=== PATIENT | female | born 1945 | race Caucasian/White ===

== ENCOUNTER → 2016-09-09 | Outpatient (CLI) | payer OTHER, BC ==
--- NOTE | 2016-09-10 20:37 | DI ---
CT CHEST SCAN WITHOUT IV CONTRAST, 09/09/2016 12:52 PM : Clinical History: Pulmonary nodule in the right lower lobe. Followup study. Previous Exam: 05/06/2016. Scans are performed from the base of the neck to the lower lung bases without IV contrast. Sagittal a nd coronal images using non MIPS and MIPS technique are generated. The base of the neck and thoracic inlet are normal. There are no abnormal axillary, supraclavicular, mediastinal, or hilar nodes. The heart is normal. Minimal calcifications are present at the origins o f the right coronary artery in the left circumflex artery. No acute infiltrate or effusion is present . The previously identified noncalcified 5 x 5 x 9 mm nodule in the right lower lobe laterally is unc hanged. Multiple small punctate calcifications are present in the right lower lobe indicating these a re small granulomas. There are 2 additional noncalcified nodules in these are present in the left low er lobe. There is one located posteriorly and this measures 3 x 3 x 6 mm. There is a larger nodule lo cated in the superior segment of the left lower lobe and this measures 5 x 5 x 6 mm. These were prese nt in retrospect and they also have not changed. Both adrenal glands and the visualized portions of t he liver, spleen, and pancreas are normal. READIN. Stable appearance of the noncalcified nodule in the right lower lobe laterally this measures 5 x 5 x 9 mm. 2. In retrospect, there are 2 additional noncalcified nodules in the left lower lobe that were not i dentified on the earlier study but have not changed. The larger lesion is in the superior segment and measures 5 x 5 x 6 mm, and the smaller lesion is located posteriorly and measures 3 x 3 x 6 mm. 3. Small punctate calcifications are present in the right lower lobe indicating these are benign gra nulomas. 4. A followup noncontrast CT scan is recommended in 6 months from this study.
== END ==
LOC: CT 12:46
PROVIDERS: ATTEND Nurse Practitioner Family
DX: R91.1 Solitary pulmonary nodule (principal)
CPT/HCPCS: 71250

== ENCOUNTER → 2016-09-12 | Outpatient (CLI) | payer OTHER, BC | LOC: MMPC 09:00 | PROVIDERS: ATTEND Nurse Practitioner Family | DX: Z79.01 Long term (current) use of anticoagulants (principal); Z51.81 Encounter for therapeutic drug level monitoring; Z86.718 Personal history of other venous thrombosis and embolism | CPT/HCPCS: 85610 ==

== ENCOUNTER → 2016-10-14 | Outpatient (CLI) | payer OTHER, BC | LOC: MMPC 09:00 | PROVIDERS: ATTEND Nurse Practitioner Family | DX: Z79.01 Long term (current) use of anticoagulants (principal); Z51.81 Encounter for therapeutic drug level monitoring; Z86.718 Personal history of other venous thrombosis and embolism | CPT/HCPCS: 85610 ==

== ENCOUNTER → 2016-11-01 | Outpatient (CLI) | payer OTHER, BC ==
[2016-11-01 14:30] LABS: BLOOD UREA NITROGEN 13 mg/dL (7-22); BUN/CREATININE RATIO 14.44 (6-20); CALCIUM 8.7 mg/dL (8.7-10.7); CHLORIDE 96 meq/L (98-112); CREATININE 0.9 mg/dL (0.50-1.20); EST GLOMERULAR FILTRATION > 60 (>60 ml/min/1.73m(2)); GLUCOSE 87 mg/dL (78-110); POTASSIUM 3.9 meq/L (3.8-5.2); SODIUM 132 meq/L (135-145)
== END ==
LOC: LAB 13:49
PROVIDERS: ATTEND Nurse Practitioner Family
DX: I10 Essential (primary) hypertension (principal)
CPT/HCPCS: 36415; 80048

== ENCOUNTER → 2016-11-11 | Outpatient (CLI) | payer OTHER, BC | LOC: MMPC 09:00 | PROVIDERS: ATTEND Nurse Practitioner Family | DX: Z79.01 Long term (current) use of anticoagulants (principal); Z51.81 Encounter for therapeutic drug level monitoring; Z86.718 Personal history of other venous thrombosis and embolism | CPT/HCPCS: 85610 ==

== ENCOUNTER → 2016-11-14 | Outpatient (CLI) | payer OTHER, BC | LOC: MMPC 09:00 | PROVIDERS: ATTEND Nurse Practitioner Family | DX: I10 Essential (primary) hypertension (principal); F32.0 Major depressive disorder, single episode, mild; E03.9 Hypothyroidism, unspecified; E55.9 Vitamin D deficiency, unspecified; M81.0 Age-related osteoporosis without current pathological fracture; I82.91 Chronic embolism and thrombosis of unspecified vein; M47.16 Other spondylosis with myelopathy, lumbar region; M54.17 Radiculopathy, lumbosacral region | CPT/HCPCS: 99214; G0463 ==

== ENCOUNTER → 2016-11-21 | Outpatient (CLI) | payer OTHER, BC ==
--- NOTE | 2016-11-21 10:24 | DI ---
MRI LUMBAR SPINE W/O CN,11/21/2016 8:50 AM: Clinical History: Lumbar back pain with radiculopathy affecting the left lower extremity. Previous Exam: None at this facility. Findings: Multiplanar MR images are obtained through the lumbar spine without contrast. Bony alignment is anatomic. No fractures are seen. Marrow signal is preserved. There is grade 1 anter olisthesis of L4 on L5. There is significant facet arthropathy with synovial cysts at the L4/5 and the L5/S1 level. Paravertebral soft tissues are otherwise unremarkable. Intra-abdominal structures are also unremarkab le. Signal characteristics within the surrounding musculature is unremarkable. The distal spinal cord is normal with a normal conus at the L1 level. The intra-abdominal structures and kidneys are unremarkable. Individual intervertebral disc spaces: L1/2: There is a broad-based disc bulge with some facet and ligamentum flavum hypertrophy contributin g to mild bilateral neural foraminal narrowing. L2/3: There is disc desiccation and a broad-based disc bulge with some facet and ligamentum flavum hy pertrophy contributing to mild to moderate right and mild left neural foraminal narrowing. L3/4: There is disc desiccation, annular fissuring and a 3 mm broad-based disc bulge combining with s ome facet and ligamentum flavum hypertrophy to cause moderate to severe bilateral lateral recess sten osis. L4/5: There is disc desiccation, a broad-based disc bulge and grade 1 anterolisthesis of L4 on L5. Th ere is facet hypertrophy, ligamentum flavum hypertrophy and bilateral facet synovial cysts. There is severe central canal stenosis at this level with severe left and moderate right lateral recess stenos is. L5/S1: There is disc desiccation, annular fissuring and a broad-based disc bulge with some facet and ligamentum flavum hypertrophy as well as multiple synovial cysts. One of these appears to be projecti ng anteriorly within the left lateral recess abutting the exiting left L5 nerve root. This contribute s to moderate left and no significant right lateral recess stenosis. Impression: 1. Grade 1 anterolisthesis and disc disease at L4/5 with synovial cyst formation. There is severe radha tral canal stenosis at this level with severe left and moderate right lateral recess stenosis. 2. Multiple synovial cysts involving the posterior articulating facets at L5/S1 with a synovial cyst extending into the left far lateral zone posteriorly abutting the left exiting L5 nerve root. Correla te with clinical symptoms.
--- NOTE | 2016-11-21 11:07 | DI ---
XR L-SPINE MIN 4 VW,11/21/2016 8:50 AM: Clinical History: Lumbar back pain with radiculopathy affecting the left lower cavity. Previous Exam: None at this facility. Findings: AP, lateral flexion and extension views are obtained, and demonstrate a levoscoliosis of the lumbar s pine at the thoracic lumbar junction. There is near complete loss of intervertebral disc height at the L2/3 level with endplate osteophyte formation. Peripheral vascular calcifications are seen. A nonobstructive bowel gas pattern is seen. There is no evidence of instability on flexion or extension however, there is very little change from flexion to extension. Impression: 1. Levoscoliosis of the thoracic or lumbar junction measuring approximately 17?. 2. Diffuse degenerative changes of the lumbar spine.
== END ==
LOC: MRI 08:40
PROVIDERS: ATTEND Nurse Practitioner Family
DX: M54.17 Radiculopathy, lumbosacral region (principal); M41.85 Other forms of scoliosis, thoracolumbar region
CPT/HCPCS: 72110; 72148

== ENCOUNTER → 2016-11-26 | Outpatient (CLI) | payer OTHER, BC ==
[2016-11-26 08:56] LABS: CALCIUM 9.1 mg/dL (8.7-10.7)
[2016-11-27 05:49] LABS: VITAMIN D 25-HYDROXY 67.8 NG/ML (30-100)
== END ==
LOC: LAB 08:19
PROVIDERS: ATTEND Nurse Practitioner Family
DX: I10 Essential (primary) hypertension (principal); E03.9 Hypothyroidism, unspecified; E55.9 Vitamin D deficiency, unspecified
CPT/HCPCS: 36415; 80048; 82306; 84443

== ENCOUNTER → 2016-12-09 | Outpatient (CLI) | payer OTHER, BC | LOC: MMPC 09:00 | PROVIDERS: ATTEND Nurse Practitioner Family | DX: Z79.01 Long term (current) use of anticoagulants (principal); Z51.81 Encounter for therapeutic drug level monitoring; Z86.718 Personal history of other venous thrombosis and embolism | CPT/HCPCS: 85610 ==

== ENCOUNTER → 2016-12-23 | Outpatient (CLI) | payer OTHER, BC | LOC: MMPC 09:00 | PROVIDERS: ATTEND Nurse Practitioner Family | DX: Z79.01 Long term (current) use of anticoagulants (principal); Z51.81 Encounter for therapeutic drug level monitoring; Z86.718 Personal history of other venous thrombosis and embolism | CPT/HCPCS: 85610 ==

== ENCOUNTER → 2017-01-01 | Outpatient (CLI) | payer OTHER, BC | LOC: MMPC 09:00 | PROVIDERS: ATTEND Nurse Practitioner Family | DX: Z79.01 Long term (current) use of anticoagulants (principal); Z51.81 Encounter for therapeutic drug level monitoring; Z86.718 Personal history of other venous thrombosis and embolism | CPT/HCPCS: 85610 ==

== ENCOUNTER → 2017-01-09 | Outpatient (CLI) | payer OTHER, BC | LOC: MMPC 09:00 | PROVIDERS: ATTEND Nurse Practitioner Family | DX: Z79.01 Long term (current) use of anticoagulants (principal); Z51.81 Encounter for therapeutic drug level monitoring; Z86.718 Personal history of other venous thrombosis and embolism | CPT/HCPCS: 85610 ==

== ENCOUNTER → 2017-01-23 | Outpatient (CLI) | payer OTHER, BC | LOC: MMPC 09:00 | PROVIDERS: ATTEND Nurse Practitioner Family | DX: Z79.01 Long term (current) use of anticoagulants (principal); Z51.81 Encounter for therapeutic drug level monitoring; Z86.718 Personal history of other venous thrombosis and embolism | CPT/HCPCS: 85610 ==

== ENCOUNTER → 2017-01-30 | Outpatient (CLI) | payer OTHER, BC | LOC: MMPC 09:00 | PROVIDERS: ATTEND Nurse Practitioner Family | DX: Z79.01 Long term (current) use of anticoagulants (principal); Z51.81 Encounter for therapeutic drug level monitoring; Z86.718 Personal history of other venous thrombosis and embolism | CPT/HCPCS: 85610 ==

== ENCOUNTER → 2017-02-06 | Outpatient (CLI) | payer OTHER, BC | LOC: MMPC 09:00 | PROVIDERS: ATTEND Nurse Practitioner Family | DX: Z79.01 Long term (current) use of anticoagulants (principal); Z51.81 Encounter for therapeutic drug level monitoring; Z86.718 Personal history of other venous thrombosis and embolism | CPT/HCPCS: 85610 ==

== ENCOUNTER → 2017-02-13 | Outpatient (CLI) | payer OTHER, BC | LOC: MMPC 09:00 | PROVIDERS: ATTEND Nurse Practitioner Family | DX: Z79.01 Long term (current) use of anticoagulants (principal); Z51.81 Encounter for therapeutic drug level monitoring; Z86.718 Personal history of other venous thrombosis and embolism | CPT/HCPCS: 85610 ==

== ENCOUNTER → 2017-02-27 | Outpatient (CLI) | payer OTHER, BC | LOC: MMPC 09:00 | PROVIDERS: ATTEND Nurse Practitioner Family | DX: Z79.01 Long term (current) use of anticoagulants (principal); Z51.81 Encounter for therapeutic drug level monitoring; Z86.718 Personal history of other venous thrombosis and embolism | CPT/HCPCS: 85610 ==

== ENCOUNTER → 2017-03-27 | Outpatient (CLI) | payer OTHER, BC | LOC: MMPC 09:00 | PROVIDERS: ATTEND Nurse Practitioner Family | DX: Z79.01 Long term (current) use of anticoagulants (principal); Z51.81 Encounter for therapeutic drug level monitoring; Z86.718 Personal history of other venous thrombosis and embolism | CPT/HCPCS: 85610 ==

== ENCOUNTER → 2017-04-01 | Outpatient (CLI) | payer OTHER, BC | LOC: MMPC 09:00 | PROVIDERS: ATTEND Nurse Practitioner Family | DX: M43.06 Spondylolysis, lumbar region (principal) | CPT/HCPCS: 99214; G0463 ==

== ENCOUNTER → 2017-04-08 | Outpatient (CLI) | payer OTHER, BC ==
--- NOTE | 2017-04-08 12:48 | DI ---
History: Lumbar spondylolysis Comparison: November 21, 2016 Findings: There is desiccation of intervertebral discs throughout the lumbar spine. Conus medullaris is normal in position at the level of L1 Cauda equina is unremarkable in appearance. T11-12: No significant disc bulge or focal disc herniation. No spinal stenosis or neural foraminal na rrowing T12-L1 mild posterior disc bulge. Mild degenerative changes of facet joints. Degenerative changes in the right facet joint results in mild right neural foramina narrowing. No spinal stenosis. L1-2: Mild degenerative changes of facet joints. Hypertrophic changes in the right facet joint result s in very mild narrowing of the right neural foramen. There is no spinal stenosis. L2-3: Loss of intervertebral disc space height. No significant disc bulge. No significant degenerativ e changes in the facet joints. No stenosis or foraminal narrowing L34: Broad-based posterior disc bulge. Moderate degenerative changes in facet joints. These changes r esult in mild focal spinal stenosis, and mild/moderate bilateral neural foramina narrowing. L4-5: 7 mm anterolisthesis L4 on L5. Broad-based posterior disc bulge. Hypertrophic degenerative arroyo ges in facet joints. These changes result in moderate to severe focal spinal stenosis, and moderate t o severe bilateral neural foraminal narrowing. Just inferior to the level of L4-5, within the lateral recess bilaterally, there are degenerative cys t arising from the facet joints. The right-sided cyst measures roughly 1.0 x 01.0 cm. Left-sided cyst measures roughly 0.8 x 1.1 cm.. The Combination of these 2 cysts results in moderate to severe focal spinal stenosis (series 801, image 37) (page 37 of 48). 5--1 mild broad-based posterior disc bulge without significant impression upon the thecal sac. Mild d egenerative changes in the facet joints. No stenosis. There is a 6 mm cyst in the left neural foramen , likely representing a synovial cyst, unchanged as compared with November 21, 2016. Impression Degenerative disc changes throughout Varying degrees of neural foraminal narrowing and spinal stenosis secondary to degenerative changes s cattered through out the lumbar spine, without significant change as compared with the MRI of October 252016. Just inferior to the level of L4-5, within the lateral recess bilaterally, there are degenerative cys ts which I believe are arising from facet joints. The combination of these cyst results in moderate t o severe focal spinal stenosis which was not evident on the previous study of November 21, 2016.
--- NOTE | 2017-04-08 15:41 | DI ---
History: Lumbar spondylolysis Comparison: None Findings: Subjectively, there is osteopenia. There is curvature of the lower thoracic and lumbar spine, convex to the left. SI joints unremarkable There is intervertebral disc space narrowing at L2 to 3, L3-4, and L5-S1 There is 6 mm anterolisthesis L4 on L5, which remains fixed with flexion and extension. There is 5 mm anterolisthesis of L5 on S1 is demonstrated on the flexion view, but reduces with exten cordelia. Note is made of aortic atherosclerosis Impression Osteopenia Levoscoliosis 6 mm anterolisthesis L4 on L5, which remains fixed with flexion and extension 5 mm anterolisthesis of L5 on S1 demonstrated on the flexion view, but reduces with extension
== END ==
LOC: MRI 08:46
PROVIDERS: ATTEND Nurse Practitioner Family
DX: M43.06 Spondylolysis, lumbar region (principal); M71.38 Other bursal cyst, other site; M47.816 Spondylosis without myelopathy or radiculopathy, lumbar region
CPT/HCPCS: 72110; 72148

== ENCOUNTER → 2017-04-10 | Outpatient (CLI) | payer OTHER, BC | LOC: MMPC 09:00 | PROVIDERS: ATTEND Nurse Practitioner Family | DX: Z79.01 Long term (current) use of anticoagulants (principal); Z51.81 Encounter for therapeutic drug level monitoring; Z86.718 Personal history of other venous thrombosis and embolism | CPT/HCPCS: 85610 ==